=== PATIENT | female | born 1990 | race Caucasian/White ===

== ENCOUNTER → 2016-07-14 | Outpatient (CLI) | payer BC ==
[2016-07-15 08:34] LABS: BILIRUBIN,URINE NEGATIVE (NEG); COLOR,URINE YELLOW; GLUCOSE, URINE (UA) NEGATIVE (NEG); NITRATE,URINE NEGATIVE (NEG); OCCULT BLOOD,URINE MODERATE (NEG); PH,URINE 5.5 (5.0-8.5); PROTEIN,URINE NEGATIVE (NEG); UROBILINOGEN,URINE 0.2 mg/dL (0.2)
[2016-07-15 08:43] LABS: CLARITY,URINE CLEAR (CLEAR); SQUAMOUS EPITHELIAL CELL,UR RARE; WBC,URINE 0
[2016-07-15 22:05] LABS: URINE SAMPLE TYPE CLEAN CATCH URINE
== END ==
LOC: LAB 14:15
PROVIDERS: ATTEND Family Medicine
DX: R10.32 Left lower quadrant pain (principal)
CPT/HCPCS: 36415; 81001; 84702

== ENCOUNTER → 2016-11-12 | Outpatient (CLI) | payer BC, OTHER | LOC: LAB 16:58 | DX: N30.01 Acute cystitis with hematuria (principal) | CPT/HCPCS: 87088 ==